=== PATIENT | female | born 1955 | race Caucasian/White ===

== ENCOUNTER 2020-07-21 10:53 | Inpatient (IN) | payer OTHER ==
[2020-07-21] MEDS ORDERED: LABETALOL HCL 5 MG/1 ML (100MG/20 ML VIAL) IVPUSH ONE ×3 (11:27→17:08)
[2020-07-21] MEDS ORDERED: LABETALOL HCL 5 MG/1 ML (100MG/20 ML VIAL) ONE (11:39)
[2020-07-21 11:58] LABS: BASO % 1.3 % (0-2.0); EOS % 3.1 % (0-4.5); HEMOGLOBIN 13.6 GM/dL (10.7-15.3); LYMPH % 31.6 % (8-40); MCH 31.6 pg (25.7-33.7); MCHC 34.8 g/dl (32.0-36.0); MEAN PLT VOLUME 10.3 fl (7.5-11.1); MONO % 6.7 % (3.8-10.2); NEUT % 57.3 % (42.8-82.8); PLATELET COUNT 224 K/MM3 (134-434); RBC 4.29 M/mm3 (3.60-5.2); RDW 13.8 % (11.6-15.6); WHITE BLOOD COUNT 7.7 K/mm3 (4.0-10.0)
[2020-07-21 12:20] LABS: CHLORIDE 105 mmol/L (98-107); SODIUM 140 mmol/L (136-145)
[2020-07-21 12:22] LABS: BLOOD UREA NITROGEN 13.1 mg/dL (7-18); CALCIUM 9.3 mg/dL (8.5-10.1)
[2020-07-21 12:23] LABS: ALBUMIN 3.8 g/dl (3.4-5.0); ANION GAP 9 MMOL/L (8-16); CO2 26 mmol/L (21-32); GLUCOSE,RANDOM 100 mg/dL (74-106)
[2020-07-21 12:26] LABS: SGOT/AST 19 U/L (15-37); SGPT/ALT 22 U/L (13-61)
[2020-07-21 12:28] LABS: BILIRUBIN,TOTAL 0.4 mg/dL (0.2-1); TOT PROT 7.9 g/dl (6.4-8.2)
[2020-07-21 12:29] LABS: ALK PHOS 75 U/L (45-117)
[2020-07-21 15:29] LABS: CHOLESTEROL 258 mg/dL (50-200); TRIGLYCERIDES 355 mg/dL (0-150)
[2020-07-21 15:30] LABS: LDL CHOLESTEROL (ONLY SJRH) 148 mg/dL (5-100)
[2020-07-21 15:32] LABS: HDL CHOLESTEROL 39 mg/dL (40-60)
[2020-07-21 16:20] VITALS: BMI 33.3
[2020-07-21] MEDS ORDERED: FLU VACCINE (FLULAVAL) PF 60 MCG/0.5 ML SYRINGE 2020-2021 IM ONE (17:28)
[2020-07-21] MEDS ORDERED: PNEUMOC 13-VAL CONJ-DIP CRM/PF 0.5 ML DISP.SYRIN IM ONE (17:30)
[2020-07-21] MEDS ORDERED: ASPIRIN 325 MG TABLET PO ONE (17:35)
[2020-07-21] MEDS ORDERED: ATORVASTATIN CA 80 MG TABLET (FP) PO ONE (17:35)
[2020-07-21] MEDS ORDERED: amLODIPine BESYLATE 5 MG TABLET (FP) PO SCH (21:00)
[2020-07-21] MEDS: ENOXAPARIN NA (PORCINE) 40 MG/0.4 ML DISP.SYRIN SQ SCH (22:20)
[2020-07-21] MEDS ORDERED: MELATONIN 5 MG TABLETS PO ONE (22:26)
[2020-07-22] MEDS ORDERED: amLODIPine BESYLATE 5 MG TABLET (FP) PO SCH (06:07)
[2020-07-22] MEDS ORDERED: amLODIPine BESYLATE 5 MG TABLET (FP) PO ONE (06:23)
[2020-07-22 06:54] LABS: EPI CELLS 11 /uL (0-25.1); HYALINE CASTS 5 /uL (0-3.1); URINE APPEARANCE CLOUDY; URINE BACTERIA >9,000 /uL (0-1359); URINE BILIRUBIN NEGATIVE (NEGATIVE); URINE COLOR YELLOW; URINE GLUCOSE (UA) NEGATIVE (NEGATIVE); URINE KETONE NEGATIVE (NEGATIVE); URINE LEUK ESTERASE 2+ (NEGATIVE); URINE NITRITE POSITIVE (NEGATIVE); URINE PROTEIN NEGATIVE (NEGATIVE); URINE RBC 10 /uL (0-23.9); URINE UROBILINOGEN 0.2 mg/dL (0.2-1.0); URINE WBC 294 /uL (0-25.8)
[2020-07-22 07:52] LABS: EOS % 2.3 % (0-4.5); HEMOGLOBIN 12.8 GM/dL (10.7-15.3); LYMPH % 23.3 % (8-40); MCH 30.7 pg (25.7-33.7); MCHC 33.7 g/dl (32.0-36.0); MEAN PLT VOLUME 10.5 fl (7.5-11.1); MONO % 8.3 % (3.8-10.2); NEUT % 65.1 % (42.8-82.8); PLATELET COUNT 205 K/MM3 (134-434); RBC 4.17 M/mm3 (3.60-5.2); RDW 13.8 % (11.6-15.6); WHITE BLOOD COUNT 8.7 K/mm3 (4.0-10.0)
[2020-07-22 08:25] LABS: ALBUMIN 3.5 g/dl (3.4-5.0); MAGNESIUM 2.2 mg/dL (1.8-2.4)
[2020-07-22 08:28] LABS: CREATININE 0.9 mg/dL (0.55-1.3)
[2020-07-22 08:29] LABS: BILIRUBIN,TOTAL 0.4 mg/dL (0.2-1)
[2020-07-22 08:30] LABS: TOT PROT 7.2 g/dl (6.4-8.2)
[2020-07-22 08:33] LABS: TRIGLYCERIDES 297 mg/dL (0-150)
[2020-07-22 08:34] LABS: CHOLESTEROL 237 mg/dL (50-200)
[2020-07-22 08:35] LABS: LDL CHOLESTEROL (ONLY SJRH) 126 mg/dL (5-100)
[2020-07-22 08:36] LABS: HDL CHOLESTEROL 36 mg/dL (40-60)
[2020-07-22] MEDS: ENOXAPARIN NA (PORCINE) 40 MG/0.4 ML DISP.SYRIN SQ SCH (09:02)
[2020-07-22] MEDS: ASPIRIN COATED 81 MG TABLET.EC PO SCH (09:02)
[2020-07-22] MEDS: hydrALAZINE HCL 20 MG/ML VIAL IVPUSH SCH ×2 (20:07→20:55)
[2020-07-22] MEDS: ATORVASTATIN CA 80 MG TABLET (FP) PO SCH (21:42)
[2020-07-22] MEDS ORDERED: NITROGLYCERIN 2% OINTMENT - 1GM PACKET TD ONE (21:53)
[2020-07-23] MEDS: amLODIPine BESYLATE 10 MG TABLET (FP) PO SCH ×2 (00:54→09:59)
[2020-07-23 06:52] LABS: BASO % 1.2 % (0-2.0); EOS % 3.5 % (0-4.5); HEMATOCRIT 39.3 % (32.4-45.2); HEMOGLOBIN 12.8 GM/dL (10.7-15.3); LYMPH % 22.7 % (8-40); MCH 29.8 pg (25.7-33.7); MCHC 32.6 g/dl (32.0-36.0); MEAN CELL VOLUME 91.3 fl (80-96); MEAN PLT VOLUME 10.5 fl (7.5-11.1); MONO % 8.1 % (3.8-10.2); NEUT % 64.5 % (42.8-82.8); PLATELET COUNT 196 K/MM3 (134-434); RBC 4.31 M/mm3 (3.60-5.2); RDW 13.8 % (11.6-15.6); WHITE BLOOD COUNT 7.2 K/mm3 (4.0-10.0)
[2020-07-23 08:28] LABS: CALCIUM 9.3 mg/dL (8.5-10.1)
[2020-07-23 08:29] LABS: ALBUMIN 3.5 g/dl (3.4-5.0); BLOOD UREA NITROGEN 10.3 mg/dL (7-18)
[2020-07-23 08:32] LABS: CREATININE 0.8 mg/dL (0.55-1.3)
[2020-07-23 08:33] LABS: BILIRUBIN,TOTAL 0.6 mg/dL (0.2-1); TOT PROT 7.1 g/dl (6.4-8.2)
[2020-07-23] MEDS ORDERED: amLODIPine BESYLATE 10 MG TABLET (FP) PO SCH (10:00)
[2020-07-23] MEDS ORDERED: LISINOPRIL 5 MG TABLET PO SCH ×2 (10:00→10:21)
[2020-07-23] MEDS: ENOXAPARIN NA (PORCINE) 40 MG/0.4 ML DISP.SYRIN SQ SCH (10:00)
[2020-07-23] MEDS: ASPIRIN COATED 81 MG TABLET.EC PO SCH (10:00)
[2020-07-23] MEDS ORDERED: amLODIPine BESYLATE 5 MG TABLET (FP) PO SCH (10:00)
[2020-07-23] MEDS ORDERED: LABETALOL HCL 200 MG TABLET (FP) PO SCH (10:30)
[2020-07-23] MEDS ORDERED: ACETAMINOPHEN 325 MG TABLET (FP) PO PRN (13:21)
[2020-07-23] MEDS: LABETALOL HCL 100 MG TABLET (FP) PO SCH (21:11)
[2020-07-23] MEDS: ATORVASTATIN CA 80 MG TABLET (FP) PO SCH (21:11)
[2020-07-24] MEDS: amLODIPine BESYLATE 10 MG TABLET (FP) PO SCH (10:09)
[2020-07-24] MEDS: LABETALOL HCL 100 MG TABLET (FP) PO SCH ×2 (10:09→21:06)
[2020-07-24] MEDS: LISINOPRIL 20 MG TABLET PO SCH (10:09)
[2020-07-24] MEDS: ENOXAPARIN NA (PORCINE) 40 MG/0.4 ML DISP.SYRIN SQ SCH (10:09)
[2020-07-24] MEDS: ASPIRIN COATED 81 MG TABLET.EC PO SCH (10:09)
[2020-07-24 10:28] LABS: BASO % 1.4 % (0-2.0); EOS % 3.5 % (0-4.5); HEMATOCRIT 38.2 % (32.4-45.2); HEMOGLOBIN 12.7 GM/dL (10.7-15.3); LYMPH % 22.9 % (8-40); MCH 30.4 pg (25.7-33.7); MCHC 33.2 g/dl (32.0-36.0); MEAN CELL VOLUME 91.4 fl (80-96); MEAN PLT VOLUME 10.2 fl (7.5-11.1); MONO % 10.8 % (3.8-10.2); NEUT % 61.4 % (42.8-82.8); PLATELET COUNT 188 K/MM3 (134-434); RBC 4.18 M/mm3 (3.60-5.2); RDW 14.1 % (11.6-15.6); WHITE BLOOD COUNT 6.5 K/mm3 (4.0-10.0)
[2020-07-24 10:49] LABS: ALBUMIN 3.3 g/dl (3.4-5.0); BLOOD UREA NITROGEN 17.8 mg/dL (7-18); CALCIUM 9.3 mg/dL (8.5-10.1)
[2020-07-24 10:50] LABS: MAGNESIUM 2.4 mg/dL (1.8-2.4)
[2020-07-24 10:53] LABS: CREATININE 1.1 mg/dL (0.55-1.3)
[2020-07-24 10:54] LABS: BILIRUBIN,TOTAL 0.6 mg/dL (0.2-1); TOT PROT 7.1 g/dl (6.4-8.2)
[2020-07-24] MEDS: ATORVASTATIN CA 80 MG TABLET (FP) PO SCH (21:06)
[2020-07-25 08:27] LABS: BASO % 1.6 % (0-2.0); EOS % 3.7 % (0-4.5); HEMATOCRIT 37.1 % (32.4-45.2); HEMOGLOBIN 12.2 GM/dL (10.7-15.3); LYMPH % 24.8 % (8-40); MCH 30.3 pg (25.7-33.7); MEAN CELL VOLUME 91.8 fl (80-96); MEAN PLT VOLUME 10.7 fl (7.5-11.1); MONO % 9.4 % (3.8-10.2); NEUT % 60.5 % (42.8-82.8); PLATELET COUNT 187 K/MM3 (134-434); RBC 4.04 M/mm3 (3.60-5.2); RDW 13.8 % (11.6-15.6); WHITE BLOOD COUNT 6.2 K/mm3 (4.0-10.0)
[2020-07-25 08:45] LABS: ALBUMIN 3.4 g/dl (3.4-5.0); CALCIUM 9.4 mg/dL (8.5-10.1)
[2020-07-25 08:46] LABS: BLOOD UREA NITROGEN 18.5 mg/dL (7-18); MAGNESIUM 2.5 mg/dL (1.8-2.4)
[2020-07-25 08:49] LABS: CREATININE 0.9 mg/dL (0.55-1.3)
[2020-07-25 08:50] LABS: BILIRUBIN,TOTAL 0.5 mg/dL (0.2-1)
[2020-07-25] MEDS: ASPIRIN COATED 81 MG TABLET.EC PO SCH (10:19)
[2020-07-25] MEDS: LABETALOL HCL 200 MG TABLET (FP) PO SCH ×2 (10:19→21:13)
[2020-07-25] MEDS: amLODIPine BESYLATE 10 MG TABLET (FP) PO SCH (10:19)
[2020-07-25] MEDS: LISINOPRIL 20 MG TABLET PO SCH (10:19)
[2020-07-25] MEDS: ENOXAPARIN NA (PORCINE) 40 MG/0.4 ML DISP.SYRIN SQ SCH (10:20)
[2020-07-25] MEDS: ATORVASTATIN CA 80 MG TABLET (FP) PO SCH (21:13)
[2020-07-26 05:34] VITALS: TEMP 98.1
[2020-07-26 08:15] LABS: BASO % 1.5 % (0-2.0); EOS % 3.1 % (0-4.5); HEMOGLOBIN 12.1 GM/dL (10.7-15.3); LYMPH % 24.9 % (8-40); MCH 30.1 pg (25.7-33.7); MCHC 32.7 g/dl (32.0-36.0); MEAN CELL VOLUME 92.2 fl (80-96); MEAN PLT VOLUME 10.9 fl (7.5-11.1); MONO % 8.5 % (3.8-10.2); PLATELET COUNT 184 10^3/uL (134-434); RBC 4.01 M/mm3 (3.60-5.2); RDW 13.8 % (11.6-15.6); WHITE BLOOD COUNT 6.5 K/mm3 (4.0-10.0)
[2020-07-26 08:37] LABS: CREATININE 0.9 mg/dL (0.55-1.3)
[2020-07-26 08:38] LABS: ALBUMIN 3.3 g/dl (3.4-5.0); BLOOD UREA NITROGEN 19.5 mg/dL (7-18); MAGNESIUM 2.6 mg/dL (1.8-2.4)
[2020-07-26 08:39] LABS: BILIRUBIN,TOTAL 0.7 mg/dL (0.2-1); TOT PROT 6.9 g/dl (6.4-8.2)
[2020-07-26 09:14] VITALS: BP 148/71; PULSE 71
[2020-07-26] MEDS: LISINOPRIL 20 MG TABLET PO SCH (10:00)
[2020-07-26] MEDS: ENOXAPARIN NA (PORCINE) 40 MG/0.4 ML DISP.SYRIN SQ SCH (10:00)
[2020-07-26] MEDS: LABETALOL HCL 200 MG TABLET (FP) PO SCH (10:00)
[2020-07-26] MEDS: amLODIPine BESYLATE 10 MG TABLET (FP) PO SCH (10:00)
[2020-07-26] MEDS: ASPIRIN COATED 81 MG TABLET.EC PO SCH (10:00)
== END 2020-07-26 12:53 | disposition home or self-care (01) | DRG 65 ==
LOC: JER 10:53 → JERBED 14:15 → J4W 15:31
PROVIDERS: ATTEND Nurse Practitioner Acute Care
DX: I63.9 Cerebral infarction, unspecified (principal); I16.1 Hypertensive emergency; I10 Essential (primary) hypertension; E78.5 Hyperlipidemia, unspecified; F17.210 Nicotine dependence, cigarettes, uncomplicated; I69.993 Ataxia following unspecified cerebrovascular disease; E66.01 Morbid (severe) obesity due to excess calories; Z68.33 Body mass index [BMI] 33.0-33.9, adult; F17.200 Nicotine dependence, unspecified, uncomplicated
CPT/HCPCS: 36415; 70450-TC; 70551-TC; 71045-TC-FY; 80053; 80061; 81003; 82550; 83036; 83721; 83735; 84100; 84443; 84484; 85025; 86780; 90670; 93005; 93010; 93306-TC; 93880-TC; 97116-GP; 97162-GP; 99285-25; C9803; G0008; G0009; Q2036; U0003; U0005